=== PATIENT | female | born 1990 ===

== ENCOUNTER 2016-07-16 08:22 | Day surgery (SDC) | payer BC ==
[~2016-07-16] VITALS: Ht 165.1 cm; Wt 62.7 kg
[2016-07-16 08:30] VITALS: BP 123/80
[2016-07-16] MEDS ORDERED: SODIUM CHLORIDE FLUSH 3 ML SYR IV SCH (09:05)
[2016-07-16] MEDS ORDERED: OXYMETAZOLINE 0.05% NASAL SPRAY (AFRIN) 15 ML BTL SCH (09:05)
[2016-07-16] MEDS ORDERED: LACTATED RINGERS 1,000 ML IV SCH (09:05)
[2016-07-16] MEDS ORDERED: SUCCINYLCHOLINE 20 MG/ML 10 ML VIAL ONE (09:23)
[2016-07-16] MEDS ORDERED: PROPOFOL 20 ML IV ONE (09:23)
[2016-07-16] MEDS ORDERED: ALFENTANIL 1,000 MCG/2 ML AMP IV ONE (09:24)
[2016-07-16] MEDS ORDERED: OXYMETAZOLINE 0.05% NASAL SPRAY (AFRIN) 15 ML BTL ONE (09:26)
[2016-07-16] MEDS ORDERED: LIDOCAINE/EPINEPHRINE 1% 1:100,000 (XYLOCAINE) 30 ML VIAL INJ ONE (09:26)
[2016-07-16] MEDS ORDERED: SILVER NITRATE APPLICATOR 1 EA TOP ONE (09:26)
[2016-07-16 10:30] VITALS: BP 136/86
[2016-07-16] MEDS ORDERED: ACETAMINOPHEN/CODEINE 300MG/30 MG (TYLENOL #3) TABLET PO PRN (10:45)
[2016-07-16] MEDS ORDERED: ONDANSETRON 2 MG/ML (Z0FRAN) 2 ML VIAL IV PRN (10:45)
[2016-07-16 10:51] VITALS: BP 159/80
[2016-07-16 11:05] VITALS: BP 149/82
[2016-07-16] MEDS ORDERED: HYPERTONIC SALINE IRRIGATION 1000 ML BTL IR SCH (21:00)
== END 2016-07-16 11:23 | disposition home or self-care (01) ==
LOC: ASC 08:22
PROVIDERS: ATTEND Otolaryngology
DX: S02.2XXA Fracture of nasal bones, initial encounter for closed fracture (principal); W50.0XXA Accidental hit or strike by another person, initial encounter; Y93.41 Activity, dancing
CPT/HCPCS: 21320; J0330; J7120